=== PATIENT | male | born 1990 | race Hispanic/Latino ===

== ENCOUNTER 2016-05-13 01:31 | Emergency (ER) | payer OTHER ==
[~2016-05-13] VITALS: Ht 182.9 cm; Wt 138.3 kg
[2016-05-13 01:38] VITALS: BP 138/80
--- NOTE | 2016-05-13 01:39 | ED AMS/SEIZURE/WEAK/DIZZY ---
History of Present Illness General Chief Complaint: ETOH/Drug Related Complaint Stated Complaint: " BIBA ETOH" Source: patient, police Exam Limitations: no limitations Vital Signs & Intake/Output Vital Signs & Intake/Output Vital Signs Date Time Temp Pulse Resp B/P Pulse O2 O2 Flow FiO2 Ox Delivery Rate 05/13 0138 96.0 84 18 138/80 100 Room Air Allergies Coded Allergies: NO KNOWN ALLERGIES (03/01/13) Triage Nurses Notes Reviewed? yes Onset: Gradual Duration: hour(s): Timing: recent history Injury Environment: street Severity: mild Modifying Factors: Improves With: rest. Associated Symptoms: "I was drinking." HPI: 26-year-old gentleman presents to the emergency department after being found in his car asleep. The medics state that he was found by the police having been drinking tonight. The police offered him the choice of being arrested for DUI or going to the hospital for evaluation. The patient chose to go to the hospital. Patient states that he had at least 6 drinks tonight. He denies other drug use. He denies suicidality homicidality or hallucinations. He is otherwise well. He would like to go home. Past History Travel History Traveled to [place] past 21 day No Medical History Any Pertinent Medical History? see below for history Surgical History Surgical History: none Psychosocial History What is your primary language Amharic Family History Hx Contributory? No Review of Systems Review of Systems Constitutional: Reports: no symptoms. EENTM: Reports: no symptoms. Respiratory: Reports: no symptoms. Cardiovascular: Reports: no symptoms. GI: Reports: no symptoms. Genitourinary: Reports: no symptoms. Musculoskeletal: Reports: no symptoms. Skin: Reports: no symptoms. Neurological/Psychological: Reports: no symptoms. Hematologic/Endocrine: Reports: no symptoms. Immunologic/Allergic: Reports: no symptoms. All Other Systems: Reviewed and Negative Physical Exam Physical Exam General Appearance: well developed/nourished, no apparent distress, alert, comfortable Head: atraumatic, normal appearance Eyes: Bilateral: normal appearance, PERRL, EOMI. Ears, Nose, Throat: normal pharynx, normal ENT inspection, hearing grossly normal Neck: normal inspection, supple, full range of motion Respiratory: normal breath sounds, chest non-tender, no respiratory distress, quiet respiration, lungs clear Cardiovascular: regular rate/rhythm Gastrointestinal: normal bowel sounds, soft, non-tender, no organomegaly Back: normal inspection, normal range of motion Extremities: normal range of motion Neurologic/Psych: no motor/sensory deficits, awake, alert, oriented x 3 Skin: intact, normal color, warm/dry Core Measures ACS in differential dx? No CVA/TIA Diagnosis: No Severe Sepsis Present: No Septic Shock Present: No Progress Differential Diagnosis: alcohol intoxication versus other. Plan of Care: Patient is awake and alert. He admits to drinking tonight. He denies suicidality homicidality or hallucinations. He does not wish detox. The breathalyzer machine is not functioning. Given that he is clinically stable, and awake and alert, he is safe to go home in the company of a friend or family member when they present to take him home. Initial ED EKG: none Departure Departure Disposition: HOME OR SELF CARE Condition: Stable Clinical Impression Primary Impression: Alcohol intoxication Referrals: PATIENT HAS NO PRIMARY CARE DR (PCP/Family) Departure Forms: Customer Survey General Discharge Information
== END 2016-05-13 02:43 ==
LOC: ERH 01:31
DX: F10.129 Alcohol abuse with intoxication, unspecified (principal)